=== PATIENT | male | born 1965 | race Caucasian/White ===

== ENCOUNTER 2020-05-29 14:42 | Emergency (ER) | payer MEDICARE, MEDICAID, SELFPAY ==
[2020-05-29] VITALS (7 sets, daily range): BP systolic 180–218; BP diastolic 97–118; PULSE 86–106; RESP 16–20; TEMP 37.2; O2SAT 97–99; BMI 27.6
--- NOTE | 2020-05-29 | XR_ITS ---
EXAMINATION: CHEST 2 VIEWS CLINICAL INFORMATION: missed dialysis. FLuid overload . COMPARISON: No recent pertinent prior studies are available for comparison. TECHNIQUE: PA and lateral views of the chest obtained. FINDINGS: Lungs well-expanded. There is mild central vascular prominence with superimposed chronic appearing reticular markings. I do not appreciate any overt edema/fluid overload. No significant effusions. Cardiac silhouette remains prominent. No acute bony abnormality. IMPRESSION: Prominent cardiac silhouette. Chronic appearing reticular markings. There is central vascular prominence but no overt edema/fluid overload.
--- NOTE | 2020-05-29 | ECG_ITS ---
Test Reason : SHORTNESS OF BREATH Blood Pressure : / mmHG Vent. Rate : 106 BPM Atrial Rate : 106 BPM P-R Int : 174 ms QRS Dur : 098 ms QT Int : 360 ms P-R-T Axes : 032 090 122 degrees QTc Int : 478 ms Sinus tachycardia Possible Left atrial enlargement Rightward axis Nonspecific ST and T wave abnormality Abnormal ECG When compared with ECG of 10-NOV-2012 15:15, Sinus tachycardia is now Present T wave inversion now evident in Lateral leads T wave inversion no longer evident in Inferior leads Referred By: Brooks Rene Electronically Signed By:HODA RIVAS
--- NOTE | 2020-05-29 17:40 | ED_ITS ---
HPI - General Adult General Chief complaint: General Medical Stated complaint: needs dialysis Time Seen by Provider: 05/29/20 17:22 Source: patient Limitations: no limitations History of Present Illness HPI narrative: Patient presents to the ED for missed dialysis. Patient states usually he received dialysis at home with a tech. Patient states he has been without his supplies at home to perform dialysis for at least a week. Patient states he has called company for them to send his supplies, but they have failed to oblige. Patient denies any chest pain or shortness of breath. patient denies any headache, dizziness, fever, chills, coughing, night sweats, runny nose. Onset (ago): week(s) ( One week) Associated symptoms: denies other symptoms Treatments prior to arrival: none Related Data Allergies Allergy/AdvReac Type Severity Reaction Status Date / Time No Known Allergies Allergy Unverified 05/11/20 14:47 Review of Systems Review of Systems: Yes all other systems are reviewed and are negative Constitutional: Constitutional: Reports as per HPI, Reports no additional constitutional complaints, Denies anorexia, Denies body ache(s), Denies chills, Denies daytime sleepiness, Denies difficulty sleeping, Denies excessive sweating, Denies poor appetite and Denies stops breathing during sleep Eyes: Eyes: Reports as per HPI, Reports no additional eye complaints and Denies loss of vision ENT: Denies dysphagia, Denies vertigo and Denies dizziness Cardiovascular: Cardiovascular: Denies no additional cardiovascular complaints, Denies chest pain, Denies chest pain at rest, Denies chest pain with activity, Denies syncope, Denies claudication, Denies dyspnea, Denies dyspnea on exertion, Denies orthopnea and Denies paroxysmal nocturnal dyspnea Respiratory: Respiratory: Denies no additional respiratory complaints, Denies chest congestion, Denies cough, Denies pain with cough, Denies dyspnea and Denies dyspnea on exertion Gastrointestinal: Gastrointestinal: Denies abdominal pain, Denies melena, Denies bloating, Denies hematochezia, Denies change in bowel habits, Denies t enesmus, Denies change in stool character, Denies coffee ground emesis, Denies dysphagia, Denies excessive flatus, Denies dyspepsia and Denies heartburn Neurologic: Reports system reviewed and no additional complaints, except as documented, Denies behavioral changes, Denies confusion, Denies vertigo, Denies dizziness, Denies syncope and Denies loss of vision Psychiatric: Psychiatric: Denies abnormal sleep pattern, Denies anxiety, Denies behavioral changes, Denies confusion and Denies auditory hallucinations Endocrine: Endocrine: Denies excessive sweating PMF Past Medical History Medical History (Updated 05/30/20 @ 00:00 by Background Daemon) Chronic renal failure Diabetes mellitus, type 2 History of renal dialysis Hypertension Social History Social History Smoked in Last 30 Days: No Use of substances other than those prescribed or required for medical reasons: No Advance Directives: No Advance Directives Information Provided: Yes Physical Exam Vital Signs and I&O and Narrative: Vital Signs and I&O: Vital Signs Temp 98.9 F 05/29/20 15:39 Pulse 86 05/29/20 21:59 Resp 16 05/29/20 21:59 BP 180/102 H 05/29/20 21:59 Pulse Ox 97 05/29/20 21:59 Intake & Output 05/29/20 05/29/20 05/30/20 06:59 18:59 06:59 Weight 80 kg Body Mass Index 27.6 Const: General: No confusion Orientation/consciousness: No confusion HENMT: Head: Yes normal to inspection Neck: Other: Negative for JVD Neck: Yes normal visual inspection Chest: Chest palpation & inspection: normal inspection of the chest and normal palpation of entire chest wall Resp: Other: Negative for use of accessory muscles. Patient is speaking in clear sentences. NEgative for any wheezing, rhonchi, or rales. Patient is not in any distress. Effort & Inspection: normal respiratory effort, able to speak in complete sentences, respiratory effort not decreased, no grunting, not labored, no nasal flaring, no paradoxical thoraco-abdom movements, no respiratory distress, no retractions and no stridor Auscultation: clear to auscultation bilaterally GI: Other: abdomen is non-distended. negative for any tenderness on palpation. Inspection: Yes normal to inspection Neuro: General: No confusion Extrem: General: No calf tenderness Left upper extremity: normal to inspection ( Positive for left upper extremity fistula intact. positive for thrill.) Right lower extremity: edema (Patient states sweeling of legs are chronic) Details: pitting and 2+ Left lower extremity: edema ( Patient states swelling is chronic.) Details: pitting and 2+ Course Course Course Narrative: Patient presently not any distress. Will do basic labs to c [place] for possible hyperkalemia. Patient will also have baseline EKG. Patient denies any chest pain or shortness of breath so troponin would not be ordered. Patient will have chest x-ray to make sure there is no signs of fluid load, Once again patient denies shortness of breath and is not using accessory muscles. Possibly will consult Nephrology after lab results. Patient also given clonidine for elevated blood pressure. Reevaluation(s) Reevaluation #1: Patient x-ray is negative for signs of fluid overload. Patient once again not any respiratory distress. Awaiting for lab results. Time: 18:52 Reevaluation #2: Patient chemistry shows normal potassium and as expected elevated creatinine in and BUN. Patient last had labs in this hospital in 2008 before he had kidney failure. Presently does no indication for dialysis. X- ray negative for fluid overload. Electrolytes such as potassium is normal. Plan is to control blood pressure. Patient informed me he also has medication problems. Patient states he has been without his meds including blood pressure meds for a while. Time: 19:23 Reevaluation #3: Patient presently not in any distress. Awaiting EKG. BNP came back 17,000. Patient presents not any distress. Spoke with patient concerning dialysis possibilities if he was discharged. Patient informed me and states the company that provides his home supplies for dialysis informed him thathe will be receiving the equipment tomorrow for dialysis. He also states if he does not receive the equipment tomorrow he can go to a dialysis center to be dialyzed. Time: 20:13 Additional Reevaluation(s): Discuss case with Dr. Lawrence my ER attending. he was informed of patient's history, physical exam, and diagnostics. He agrees that there is no indication for emergent dialysis. He also states patient is 17,000 BNP most likely to kidney failure and not CHF. He also states usually BNP is usually elevated in a dialysis patient. Patient's blood pressure slightly elevated, but he states he rather be discharged and fill out his prescription medications. Patient does not want to wait for blood pressure to be controlled. Patient states tomorrow once again he will receive his equipment from the company for home dialysis. Time is 9:26PM Medical Decision Making MDM Narrative Medical decision making narrative: History, physical exam, and diagnostic does not indicate fluid overload. Patient is anemic due to chronic kidney failure. Presently patient does not need emergent dialysis. Patient no longer wants to wait for better blood pressure control. Patient wants to be discharged. Patient explained signs and risk of stroke and heart attack patient states he was still like to leave and will return to the ED felt any other symptoms. Once again patient states tomorrow he would have his home dialysis equipment at his home for dialysis. Patient signed out AMA. Patient explained risks of , [place], and stroke from uncontrolled Blood pressure. Patient insisted he will leave against medical advice. Differential Diagnosis Differential Diagnosis: Rule out fluid overload Medical Records Medical records reviewed: Yes I reviewed the patient's medical records. Lab Data Result diagrams: 05/29/20 18:32 05/29/20 18:32 Labs: Lab Results 05/29/20 05/29/20 05/29/20 Range/Units 18:32 18:32 18:32 WBC 6.9 (4.8-10.8) X10*3/uL RBC 2.57 L (4.60-5.80) X10*6/uL Hgb 8.1 L (14.0-18.0) g/dl Hct 25.5 L (42-52) % MCV 99.2 H (80-98) fL MCH 31.5 (27.0-33.0) pg MCHC 31.8 (31.0-36.0) g/dl RDW 17.6 H (11.0-16.0) % Plt Count 219 (160-400) X10*3/uL MPV 9.9 (9.4-12.4) fL Immature Gran % (Auto) 1.3 H (0.0-0.4) % Neut % (Auto) 75.2 H (45-73) % Lymph % (Auto) 15.5 L (20-40) % [place] % (Auto) 5.1 (2-11) % Eos % (Auto) 2.3 (0-4) % Baso % (Auto) 0.6 (0-2) % Neut # (Auto) 5.2 (2.0-8.3) X10*3/uL Lymph # (Auto) 1.1 L (1.2-4.9) X10*3/uL [place] # (Auto) 0.4 (0.1-1.2) X10*3/uL Eos # (Auto) 0.2 (0.0-0.4) X10*3/uL Baso # (Auto) 0.0 (0.0-0.2) X10*3/uL Abs Immat Gran (auto) 0.09 H (0.00-0.03) X10*3/uL Absolute Nucleated RBC 0.000 (0.0-0.012) X10*3/uL Nucleated RBC % (auto) 0.0 (0.0-0.2) /100WBC PT 11.8 (10.8-13.0) SEC INR 1.0 (0.9-1.1) APTT 29.8 (24.1-38.0) SEC Sodium 134 L (135-145) mmol/L Potassium 4.4 (3.3-5.1) mmol/l Chloride 96 (96-108) mmol/L Carbon Dioxide 24 (22-29) mmol/L Anion Gap 18 (12-20) BUN 58 H (9-16) mg/dL Creatinine 4.53 H* (0.5-1.4) mg/dL Estim Creat Clear Calc 19.1 Estimated GFR 14 Random Glucose 265 H (60-115) mg/dL Calcium 10.1 (8.4-10.2) mg/dL B-Natriuretic Peptide (<100) pg/mL 05/29/20 Range/Units 18:33 WBC (4.8-10.8) X10*3/uL RBC (4.60-5.80) X10*6/uL Hgb (14.0-18.0) g/dl Hct (42-52) % MCV (80-98) fL MCH (27.0-33.0) pg MCHC (31.0-36.0) g/dl RDW (11.0-16.0) % Plt Count (160-400) X10*3/uL MPV (9.4-12.4) fL Immature Gran % (Auto) (0.0-0.4) % Neut % (Auto) (45-73) % Lymph % (Auto) (20-40) % [place] % (Auto) (2-11) % Eos % (Auto) (0-4) % Baso % (Auto) (0-2) % Neut # (Auto) (2.0-8.3) X10*3/uL Lymph # (Auto) (1.2-4.9) X10*3/uL [place] # (Auto) (0.1-1.2) X10*3/uL Eos # (Auto) (0.0-0.4) X10*3/uL Baso # (Auto) (0.0-0.2) X10*3/uL Abs Immat Gran (auto) (0.00-0.03) X10*3/uL Absolute Nucleated RBC (0.0-0.012) X10*3/uL Nucleated RBC % (auto) (0.0-0.2) /100WBC PT (10.8-13.0) SEC INR (0.9-1.1) APTT (24.1-38.0) SEC Sodium (135-145) mmol/L Potassium (3.3-5.1) mmol/l Chloride (96-108) mmol/L Carbon Dioxide (22-29) mmol/L Anion Gap (12-20) BUN (9-16) mg/dL Creatinine (0.5-1.4) mg/dL Estim Creat Clear Calc Estimated GFR Random Glucose (60-115) mg/dL Calcium (8.4-10.2) mg/dL B-Natriuretic Peptide 39315 H (<100) pg/mL Imaging Data Chest x-ray: Attestation: I personally reviewed and interpreted this imaging study as follows: Radiologist's impression: Negative for fluid overload. ECG Data Interpretation: Sinus tachycardia, NOnsepcific ST and T wave abnormality. Heart rate 106. CA interval 174 Discharge Plan Discharge Clinical Impression: Missed dialysis, Hypertension Patient Disposition: Left Against Medical Advice Instructions: Hypertensive Crisis (ED), Hypertension (ED), End Stage Kidney Disease (ED) Additional Instructions: return to the ED immediately for any chest pain, shortness of breath, headache, dizziness, slurred speech, paralysis of extremities, weakness, increase swelling of lower extremities or any other concerning symptoms. Please picker tender your prescribed clonidine, metoprolol, and other medications from the pharmacy. please follow-up with your PCP and cash analyst tomorrow. Stand Alone Forms: Against Medical Advice Interventions: ED Discharge Assessment Last Done: 05/29/20 22:05 Discharge Date/Time: 05/29/20 22:07 Print Language: Setswana
[2020-05-29 18:38] LABS: Basophils Percent Auto 0.6 % (0-2); Eosinophils Absolute Auto 0.2 X10*3/uL (0.0-0.4); Eosinophils Percent Auto 2.3 % (0-4); Hematocrit 25.5 % (42-52); Hemoglobin 8.1 g/dl (14.0-18.0); Imm Gran Abs Auto 0.09 X10*3/uL (0.00-0.03); Imm Gran Pct Auto 1.3 % (0.0-0.4); Lymphocytes Absolute Auto 1.1 X10*3/uL (1.2-4.9); Lymphocytes Percent Auto 15.5 % (20-40); MANUAL DIFF FLAG NO; Mean Corpuscular HGB Conc 31.8 g/dl (31.0-36.0); Mean Corpuscular Hemoglobin 31.5 pg (27.0-33.0); Mean Corpuscular Volume 99.2 fL (80-98); Mean Platelet Volume 9.9 fL (9.4-12.4); Monocytes Absolute Auto 0.4 X10*3/uL (0.1-1.2); Monocytes Percent Auto 5.1 % (2-11); Neutrophils Absolute Auto 5.2 X10*3/uL (2.0-8.3); Neutrophils Percent Auto 75.2 % (45-73); Platelet Count 219 X10*3/uL (160-400); Red Blood Count 2.57 X10*6/uL (4.60-5.80); Red Cell Distribution Width 17.6 % (11.0-16.0); White Blood Count 6.9 X10*3/uL (4.8-10.8)
[2020-05-29] MEDS: cloNIDine HCL 0.2 MG TABLET PO (18:38)
[2020-05-29 18:47] LABS: Prothrombin Time 11.8 SEC (10.8-13.0)
[2020-05-29 18:50] LABS: Partial Thromboplastin Time 29.8 SEC (24.1-38.0)
[2020-05-29 19:05] LABS: Anion Gap 18 (12-20); Blood Urea Nitrogen 58 mg/dL (9-16); Calcium 10.1 mg/dL (8.4-10.2); Carbon Dioxide 24 mmol/L (22-29); Chloride 96 mmol/L (96-108); Creatinine Clr Calc Pharmacy 19.1; Estimated Glomerular Filt Rate 14; Glucose Random 265 mg/dL (60-115); Potassium 4.4 mmol/l (3.3-5.1); Sodium 134 mmol/L (135-145)
[2020-05-29 19:40] LABS: B Type Natriuretic Peptide 17656 pg/mL (<100)
[2020-05-29] MEDS: Labetalol HCL 100 MG/20 ML VIAL 20 MG IVPUSH (21:42)
--- NOTE | 2020-05-29 21:48 | PC.NURSE ---
MEDICATED CHARTED. BP CUFF ON CYCLE. DOES NOT WANT TO STAY. PLAN WILL BE RECHECK BP AND LEAVING AMA.
== END 2020-05-29 22:07 | disposition left against medical advice (07) ==
PROVIDERS: Physician Assistant; Emergency Provider Emergency Medicine; PCP Internal Medicine
DX: E87.70 Fluid overload, unspecified (principal); I12.0 Hypertensive chronic kidney disease with stage 5 chronic kidney disease or end stage renal disease; N18.6 End stage renal disease; Z91.15 Patient's noncompliance with renal dialysis; Z79.899 Other long term (current) drug therapy
CPT/HCPCS: 36415; 71046; 80048; 83880; 85025; 85610; 85730; 93005; 93010; 96374; 96376; 99284

== ENCOUNTER 2020-07-26 14:53 | Emergency (ER) | payer MEDICARE, MEDICAID, SELFPAY ==
--- NOTE | 2020-07-26 15:07 | ED.CPR ---
HPI - CPR General Stated Complaint: CARDIAC ARREST Time Seen by Provider: 07/26/20 15:07 Source: EMS Mode of arrival: EMS Limitations: other (unresponsive and intubated) History of Present Illness HPI narrative: patient last had dialysis on Friday. During dialysis he had become unresponsive, family called EMS. Upon arrival EMS found patient in cardiac arrest. Patient intubated and ACLS started. Total down time was 25 minutes prior to arrival. complaint: found unresponsive Onset (ago): minute(s) (25) Timing confirmed by: other (EMS) Place: home Bystander CPR performed: Yes AED applied by bystander/supervisor enrobing: Yes Shock advised: No Downtime before ACLS arrival (mins): 5 Initial findings in the field: unresponsive ROSC in the field: No Associated injuries: No Known history of: CAD and other (HTN, ESRD) Treatments prior to arrival: intubation, chest compressions and epinephrine mgs # Related Data Allergies Allergy/AdvReac Type Severity Reaction Status Date / Time No Known Allergies Allergy Unverified 05/11/20 14:47 Review of Systems Review of Systems: Yes Unobtainable due to mental status [facility] Past Medical History Medical History (Updated 07/26/20 @ 15:20 by Jeremy Craig MD) Chronic renal failure Diabetes mellitus, type 2 History of renal dialysis Hypertension Physical Exam Const: Other: intubated unresponisve HENMT: Other: fixed and dilated Chest: Other: no heart sounds Resp: Other: equal BS with bagging Cardio: Other: no HS, antonella giving compressions GI: Other: soft Skin: Other: severe pallor Neuro: Other: no movement Extrem: Other: no edema Course Course Course Narrative: gave pt epi and calcium for potential hyperkalemia. After 3 minutes no cardiac movement on bedside US. Code called at 3:04pm. Likely secondary to NC, hyperkalemia MDM - Cardiac Arrest/CPR MDM Narrative Medical decision making narrative: Pt is chronically ill ESRD, cardiac arrest likely secondary to NC or hyperkalemia Discharge Plan Discharge Clinical Impression: Cardiac arrest Patient Disposition: Date/Time: 07/26/20 15:04
--- NOTE | 2020-07-26 15:26 | PC.NURSE ---
Pt arrived to the ED after a witnessed arrest at home. EMS initiated cpr utilizing the Marcin chest compression device, and intubated pt in the field. CPR was continued here (see resuscitation report), and code called at 1504. See donor services documentation for NEDS reporting.
[2020-07-27 08:10] LABS: Glucose, Whole Blood 126 mg/dL (60-115)
== END 2020-07-26 18:49 | disposition expired ==
LOC: HO.ED 17:38
PROVIDERS: Emergency Provider Emergency Medicine; PCP Internal Medicine
DX: I46.9 Cardiac arrest, cause unspecified (principal)
CPT/HCPCS: 82947; 96374; 96375; 99285; J0171